=== PATIENT | male | born 1955 | race Two or more races ===

== ENCOUNTER 2020-01-17 19:53 | Emergency (ER) | payer OTHER ==
[~2020-01-17] VITALS: Ht 180.3 cm; Wt 136.1 kg
[~2020-01-17 19:53] MED LIST: ALBU1AER4 IN; AML5T PO; APIX5TAB PO; ATOR80TA PO; CAR125T PO; DRON400T PO; FENO134C PO; FOLI1TAB51 PO; FURO1TAB31 PO; GABA300C10 PO; HYDR-4833 PO; INSLISPI SC; INSU1INJ14 SC; LIRA18IN2 SUBCUT; LOSA-39 PO; NYST1POW12 XX; SPIR50TA5 PO
[2020-01-17] MEDS ORDERED: NOREPINEPHRINE 8 MG/250ML KIT 250 ML IV ONE (20:02)
[2020-01-17] MEDS ORDERED: NOREPINEPHRINE 8 MG/250ML KIT 250 ML IV SCH (20:03)
[2020-01-17 20:07] VITALS: BP 106/60
[2020-01-17] MEDS ORDERED: EPINEPHrine HCL 1 MG/10 ML SYRG ONE (20:22)
== END 2020-01-17 20:38 | disposition expired ==
LOC: EDBD 19:53 → ER 19:56
DX: I46.9 Cardiac arrest, cause unspecified (principal); E11.22 Type 2 diabetes mellitus with diabetic chronic kidney disease; I13.0 Hypertensive heart and chronic kidney disease with heart failure and stage 1 through stage 4 chronic kidney disease, or unspecified chronic kidney disease; N18.9 Chronic kidney disease, unspecified; I50.9 Heart failure, unspecified
CPT/HCPCS: 31500; 92950; 99291; J0171; 94002